=== PATIENT | female | born 1985 | race Caucasian/White ===

== ENCOUNTER 2021-04-15 12:39 | Emergency (ER) | payer OTHER ==
[2021-04-15] MEDS ORDERED: CEPHALEXIN500 M1 PO (13:21)
== END 2021-04-15 13:56 | disposition home or self-care (01) ==
LOC: EDBD 12:39 → FER 12:39
DX: L03.032 Cellulitis of left toe (principal); L60.0 Ingrowing nail; Z91.040 Latex allergy status
CPT/HCPCS: 99283